=== PATIENT | male | born 1985 | race Caucasian/White ===

== ENCOUNTER → 2020-10-21 | Outpatient (CLI) | payer OTHER ==
--- NOTE | 2020-10-21 12:31 | REP ---
INDICATION: LOW BACK PAIN. COMPARISON: None. TECHNIQUE: Three AP and lateral views lumbosacral spine. FINDINGS: There is no compression fracture. There is normal lumbar lordosis. Tiny spurs are seen of L2 and L4 vertebral bodies. There is slight narrowing at L5-S1, with sclerosis at the facets of L5-S1. The posterior elements are intact. IMPRESSION: Very mild degenerative changes. <Electronically signed by Carlitos Franco > 10/21/20 [id number]
== END ==
LOC: M WUC 10:58
PROVIDERS: ATTEND Physician Assistant
DX: M54.5 Low back pain (principal); M51.37 Other intervertebral disc degeneration, lumbosacral region; M25.78 Osteophyte, vertebrae

== ENCOUNTER → 2021-06-15 | Outpatient (CLI) | payer BC ==
--- NOTE | 2021-06-16 15:57 | SLEEPHOME ---
DATE: 06/15/2021 ORDERED BY: JATIN Dietz Diagnostic home sleep testing was performed due to concern for the obstructive sleep apnea syndrome in this patient with a history of snoring. For testing, a nocturnal T3 respiratory monitoring device was used. Continuous record was made of pulse, oxygen saturation, air flow, chest and abdominal strain and body position. 9 hours and 59 minutes of data were reviewed. There were 5 hours and 31 minutes marked as time in bed. During the internal marked time in bed, there were 46 respiratory events identified at 10 seconds in duration or greater for a respiratory index of 8.3. The events were primarily obstructive, 9 mixed and central apneas were seen. Baseline pulse rate 89, pulse range 71 to 115, baseline saturation 93%. Saturations fell to 72% and testing was performed in both the supine and nonsupine positions IMPRESSION: Abnormal home sleep testing with repetitive respiratory events and oxygen desaturation to 72% with a respiratory event index of 8.3 is consistent with obstructive sleep apnea syndrome. RECOMMENDATIONS: The patient should be encouraged to undergo formal sleep evaluation.
== END ==
LOC: M SLEEP HO 13:16
PROVIDERS: ATTEND Nurse Practitioner Family
DX: R06.83 Snoring (principal)

== ENCOUNTER → 2022-06-20 | Outpatient (CLI) | payer OTHER | LOC: M RAD 06:54 | PROVIDERS: ATTEND Physician Assistant | DX: M51.16 Intervertebral disc disorders with radiculopathy, lumbar region (principal); M47.816 Spondylosis without myelopathy or radiculopathy, lumbar region ==

== ENCOUNTER → 2023-09-25 | Outpatient (CLI) | payer OTHER | LOC: M WUC 09:27 | PROVIDERS: ATTEND Physician Assistant | DX: S83.412A Sprain of medial collateral ligament of left knee, initial encounter (principal); W10.8XXA Fall (on) (from) other stairs and steps, initial encounter; Y92.9 Unspecified place or not applicable; Y93.9 Activity, unspecified; Y99.9 Unspecified external cause status ==

== ENCOUNTER → 2024-09-02 | Outpatient (CLI) | payer OTHER | LOC: M PLALAB 12:29 | PROVIDERS: ATTEND Obstetrics & Gynecology | DX: Z31.440 Encounter of male for testing for genetic disease carrier status for procreative management (principal) ==